=== PATIENT | female | born 1995 | race Two or more races ===

== ENCOUNTER 2024-02-01 13:17 | Emergency (ER) | payer OTHER ==
[~2024-02-01] VITALS: Ht 149.9 cm; Wt 71.2 kg
[2024-02-01] MEDS ORDERED: WELLBUTRIN SR100 MG (15:26)
[2024-02-01] MEDS ORDERED: INTUNIV1 MG PO (15:26)
[2024-02-01] MEDS ORDERED: GRALISE600 MG (15:26)
[2024-02-01] MEDS ORDERED: QUETIAPINE FUMA50 MG PO (15:27)
[2024-02-01 17:55] LABS: HEMATOCRIT 40.9 % (36.0-45.00); HEMOGLOBIN 13.3 g/dL (12.0-15.00); MEAN CELL VOLUME 75.2 fL (80.00-100.00); MEAN CORPUSCULAR HEMOGLOBIN 24.4 pg (27.00-32.0); MEAN CORPUSCULAR HGB CONC 32.5 g/dl (32.0-36.0); PLATELET COUNT 260 K/uL (150-450); RED BLOOD COUNT 5.44 M/uL (4.00-6.00); RED CELL DISTRIBUTION WIDTH 14.1 % (11.5-14.5)
[2024-02-01 18:28] LABS: ALBUMIN 4.7 gm/dL (3.4-5.0); ALKALINE PHOSPHATASE 72 U/L (50-136); ALT/SGPT 22 U/L (12-78); ANION GAP 11 (10.0-20.0); AST/SGOT 10 U/L (15-37); BILIRUBIN TOTAL 0.64 mg/dL (0.3-1.2); BLOOD UREA NITROGEN 11 mg/dL (7-18); BUN CREA RATIO 16 (7.0-25.0); CALCIUM 9.9 mg/dL (8.5-10.1); CARBON DIOXIDE 25 mEq/L (21-32); CHLORIDE 108 mmol/L (98-107); GFR 98.93; GLOBULINA 4.1 G/DL (2.4-3.5); GLUCOSE FASTING 87 mg/dL (65-100); OSMOLALITY SERUM 278 MOSM/KG (275-295); POTASSIUM 3.61 mEq/L (3.5-5.1); SODIUM 140 mmol/L (136-145); TOTAL PROTEIN 8.8 gm/dL (6.4-8.2)
[2024-02-01 18:50] LABS: HCG QUANTITATIVE < 1 mUI/mL (1-3)
[2024-02-01] MEDS ORDERED: ANTIVERT25 M2 PO (19:40)
== END 2024-02-01 19:48 | disposition home or self-care (01) ==
LOC: ER 13:19
PROVIDERS: General Practice
DX: R42 Dizziness and giddiness (principal); Z88.8 Allergy status to other drugs, medicaments and biological substances; F41.8 Other specified anxiety disorders; Z20.822 Contact with and (suspected) exposure to COVID-19